=== PATIENT | female | born 1995 | race Caucasian/White ===

== ENCOUNTER 2025-03-17 15:35 | Emergency (ER) | payer MEDICAID ==
[~2025-03-17] VITALS: Ht 157.5 cm; Wt 81.8 kg
[~2025-03-17 15:35] MED LIST: CEPH-558 PO; NOCURR; SULF-261 PO
[2025-03-17 15:42] VITALS: BP 137/85; PULSE 124; RESP 18; TEMP 99.5; O2SAT 98
[2025-03-17 17:15] LABS: BASOPHILS % (AUTO) 0.4 % (0.0-2.0); EOSINOPHILS % (AUTO) 0.1 % (1.0-6.0); HEMATOCRIT 36.6 % (36-46); HEMOGLOBIN 11.3 g/dL (12.0-16.0); LYMPHOCYTES % (AUTO) 9.3 % (22.0-44.0); MEAN CORPUSCULAR HEMOGLOBIN 21.6 pg (26.0-34.0); MEAN CORPUSCULAR HGB CONC 30.8 G/dL (31.0-37.0); MEAN CORPUSCULAR VOLUME 70 fL (80-100); MONOCYTES # (AUTO) 0.5 K/uL (0.1-1.0); MONOCYTES % (AUTO) 4.4 % (2.0-9.0); NEUTROPHILS # (AUTO) 9.1 K/uL (1.8-7.7); PLATELET COUNT (AUTO) 293 K/uL (150-450); RED CELL DISTRIBUTION WIDTH 16.3 % (11.5-14.5); WHITE BLOOD COUNT (AUTO) 10.6 K/uL (4.5-11.0)
[2025-03-17 17:17] LABS: NEUTROPHILS % (AUTO) 85.8 % (40.0-70.0)
[2025-03-17 17:18] LABS: APPEARANCE,URINE CLEAR (CLEAR); BILIRUBIN,URINE NEGATIVE (NEGATIVE); COLOR,URINE LIGHT YELLOW (YELLOW); GLUCOSE, URINE (UA) >=1000 mg/dL (NEGATIVE); KETONES,URINE NEGATIVE (NEGATIVE); LEUKOCYTE ESTERASE ,URINE SMALL (NEGATIVE); NITRATE,URINE NEGATIVE (NEGATIVE); OCCULT BLOOD,URINE NEGATIVE (NEGATIVE); PROTEIN,URINE NEGATIVE (NEGATIVE); SPECIFIC GRAVITIY, URINE 1.023 (1.003-1.030); UROBILINOGEN,URINE <=1.0 mg/dL (<=1.0)
[2025-03-17 17:21] LABS: ANION GAP 5 mmol/L (8-16); CALCIUM, TOTAL 8.6 mg/dL (8.8-10.5); CARBON DIOXIDE 30 mmol/L (22-29); CHLORIDE 97 mmol/L (98-107); CREATININE 1.02 mg/dL (0.60-1.30); GLOMERULAR FILTR. RATE CALC > 60 mL/min (>60); GLUCOSE,RANDOM 372 mg/dL (70-110); POTASSIUM 4.1 mmol/L (3.5-5.1); SODIUM SERUM 132 mmol/L (136-145); UREA NITROGEN, BLOOD 6 mg/dL (7-18)
[2025-03-17] MEDS: IBUPROFEN 600 MG TABLET PO ONE (17:25)
[2025-03-17] MEDS: ONDANSETRON HCL 4 MG/2 ML VIAL IM ONE (17:25)
[2025-03-17] MEDS: ACETAMINOPHEN 500 MG TABLET PO ONE (17:26)
[2025-03-17 17:32] LABS: BACTERIA,URINE Few /HPF (None Seen); RBC,URINE None Seen /HPF (0-2); SQUAMOUS EPITHELIAL CELL,UR Few /LPF (None Seen)
[2025-03-17 17:35] LABS: RBC MORPHOLOGY COMMENT ABNORMAL RBC MORPH
[2025-03-17] MEDS ORDERED: METF-1211 PO (17:45)
[2025-03-17] MEDS ORDERED: PROM-223 PO (17:49)
[2025-03-17] MEDS ORDERED: ACET-66 PO (17:49)
[2025-03-17] MEDS ORDERED: CEPH-558 PO (17:49)
[2025-03-17] MEDS: MetFORMIN HCL 500 MG ER TABLET PO ONE (18:20)
== END 2025-03-17 18:21 | disposition home or self-care (01) ==
LOC: EMS 15:41
DX: E11.65 Type 2 diabetes mellitus with hyperglycemia (principal); N39.0 Urinary tract infection, site not specified; Z79.899 Other long term (current) drug therapy
CPT/HCPCS: 99284; 80048; 81001; 84703; 85025; 87077; 87086; 36415; 96372; J2405; 87186